=== PATIENT | female | born 1955 | race Caucasian/White ===

== ENCOUNTER 2020-01-23 08:39 | Day surgery (SDC) | payer BC ==
[~2020-01-23] VITALS: Ht 167.6 cm; Wt 62.9 kg
[~2020-01-23 08:39] MED LIST: ATOR20 PO; BACL10 PO; CARB200 PO; OMEP20ER PO; VITAMIN D5000 UNIT PO
[2020-01-23] MEDS ORDERED: IBUP400 (09:23)
== END 2020-01-23 10:59 | disposition home or self-care (01) ==
LOC: ORSCSDS 08:39
PROVIDERS: Internal Medicine Gastroenterology
PROC: 0DBM8ZX Excision of Descending Colon, Via Natural or Artificial Opening Endoscopic, Diagnostic (ICD-10-PCS; principal; 2020-01-23 10:00)
PROC: 0DBP8ZX Excision of Rectum, Via Natural or Artificial Opening Endoscopic, Diagnostic (ICD-10-PCS; principal; 2020-01-23 10:00)
DX: R19.5 Other fecal abnormalities (principal); D12.4 Benign neoplasm of descending colon; D12.8 Benign neoplasm of rectum; K57.30 Diverticulosis of large intestine without perforation or abscess without bleeding; F17.210 Nicotine dependence, cigarettes, uncomplicated; Z79.899 Other long term (current) drug therapy
CPT/HCPCS: 88305; J2704; J7120

== ENCOUNTER 2021-04-20 09:33 | Emergency (ER) | payer OTHER ==
[~2021-04-20] VITALS: Ht 167.6 cm; Wt 65.8 kg
[~2021-04-20 09:33] MED LIST changes: +IBUP400
[2021-04-20] MEDS ORDERED: GABA300 (10:05)
== END 2021-04-20 10:52 | disposition home or self-care (01) ==
LOC: ER 09:33
DX: I80.8 Phlebitis and thrombophlebitis of other sites (principal); Z79.899 Other long term (current) drug therapy
CPT/HCPCS: 93971

== ENCOUNTER 2022-01-26 12:42 | Day surgery (SDC) | payer OTHER ==
[~2022-01-26] VITALS: Ht 167.6 cm; Wt 60.5 kg
[~2022-01-26 12:42] MED LIST changes: +GABA300
== END 2022-01-26 14:45 | disposition home or self-care (01) ==
LOC: ORSCSDS 12:42
PROVIDERS: Ophthalmology
PROC: 08RJ3JZ Replacement of Right Lens with Synthetic Substitute, Percutaneous Approach (ICD-10-PCS; principal; 2022-01-26 14:00)
DX: H25.11 Age-related nuclear cataract, right eye (principal); F17.210 Nicotine dependence, cigarettes, uncomplicated
CPT/HCPCS: J2001; J2250; J3010; J3301; J7040; V2632

== ENCOUNTER 2022-02-11 07:40 | Day surgery (SDC) | payer OTHER ==
[~2022-02-11] VITALS: Ht 167.6 cm; Wt 59.7 kg
--- NOTE | 2022-02-11 08:25 | NUR ---
02/11/22 0825 Isabela Oscar AT 0818 PLEDGET AT 0820
--- NOTE | 2022-02-11 10:26 | NUR ---
02/11/22 Cecilia Corona UPON ARRIVAL TO PACU, RN RECEIVED IN REPORT THAT ANESTHESIA KEPT OPEN IV FLUID. DURING STEPDOWN IV FLUID KEPT RUNNING FOR BP OF 91/66. BP IMPROVED TO 106/57 WITH A MAP OF 71 AND THEN 100/47 WITH MAP OF 63 PRIOR TO DISCHARGE. PATIENT ALSO INFORMED RN THAT HER BP NORMALLY IS IN THE 90S SYSTOLICALLY. CONSULTED [employer] PRIOR TO DISCHARGE. SEE VSS FOR COMPLETE DETAILS
== END 2022-02-11 10:14 | disposition home or self-care (01) ==
LOC: ORSCSDS 07:40
PROVIDERS: Ophthalmology
PROC: 08RK3JZ Replacement of Left Lens with Synthetic Substitute, Percutaneous Approach (ICD-10-PCS; principal; 2022-02-11 09:00)
DX: H25.12 Age-related nuclear cataract, left eye (principal); Z96.1 Presence of intraocular lens; E78.5 Hyperlipidemia, unspecified; F17.210 Nicotine dependence, cigarettes, uncomplicated; K21.9 Gastro-esophageal reflux disease without esophagitis; Z79.899 Other long term (current) drug therapy
CPT/HCPCS: J2001; J2250; J2405; J3010; J3301; J7040; V2632

== ENCOUNTER → 2022-02-25 | Outpatient (CLI) | payer OTHER ==
[2022-02-26 16:11] LABS: HPV 16 Negative (Negative); HPV 18 Negative (Negative); HPV OTHER HR TYPES Negative (Negative)
== END | disposition home or self-care (01) ==
LOC: RAD SHORT 11:45
PROVIDERS: Advanced Practice Midwife
DX: Z01.419 Encounter for gynecological examination (general) (routine) without abnormal findings (principal)
CPT/HCPCS: 87624; G0145